=== PATIENT | male | born 1940 | race Caucasian/White ===

== ENCOUNTER 2022-07-17 11:30 | Outpatient (CLI) | payer BC, MEDICARE ==
[~2022-07-17 11:30] MED LIST: AMA1T PO; AMLO5TAB5 PO; ATEN25TA72 PO; ATOR40TA7 PO; BIMA2.5D EACHEYE; BRIM5DRO3 RIGHTEYE; CHOL10002 PO; FLEC100T3 PO; FURO40TA4 PO; HYDR-3965 PO; LEVE10002 PO; MAGN400C PO; OMEP40CA21 PO; POTA-207 PO; SITA1TAB6 PO
== END 2022-07-17 23:59 | disposition home or self-care (01) ==
LOC: RAD 11:30
PROVIDERS: ATTEND Internal Medicine Cardiovascular Disease
DX: I08.0 Rheumatic disorders of both mitral and aortic valves (principal); I25.10 Atherosclerotic heart disease of native coronary artery without angina pectoris
CPT/HCPCS: 93306